=== PATIENT | male | born 1980 | race African-American/Black ===

== ENCOUNTER 2019-01-04 21:06 | Emergency (ER) | payer BC ==
[2019-01-04 22:25] VITALS: BP 127/69
[2019-01-04] MEDS ORDERED: LIDOCAINE 1% INJ-PF (10 MG/ML) 30 ML SDV INJ ONE (23:06)
[2019-01-04] MEDS ORDERED: PROMETHAZINE HCL 25 MG TABLET PO ONE (23:06)
[2019-01-04] MEDS ORDERED: OXYCODONE-ACETAMINOPHEN 5-325 MG TABLET PO ONE (23:06)
--- NOTE | 2019-01-04 23:08 | ER Document Report ---
ED Medical Screen (RME) - General Chief Complaint: Groin Pain Stated Complaint: GROIN AREA BUMP Time Seen by Provider: 01/04/19 23:06 Notes: 38-year-old male with chief complaint of a swollen painful area in the right groin, started 2 days ago and worsened. Pain radiates up towards the hip on the right side. Denies fever/chills, nausea/vomiting. Denies history of the same or past medical history. TRAVEL OUTSIDE OF THE [place] IN LAST 30 DAYS: No - Related Data Allergies/Adverse Reactions: No Known Allergies Allergy (Verified 01/04/19 21:08) Past Medical History Past Surgical History: Reports: Hx Appendectomy - Immunizations Hx Diphtheria, Pertussis, Tetanus Vaccination: Yes Physical Exam - Vital signs Vitals: Temp Pulse Resp BP Pulse Ox 97.8 F 62 18 127/69 H 98 01/04/19 22:23 01/04/19 22:23 01/04/19 22:23 01/04/19 22:23 01/04/19 22:23 - Genitourinary Inspection: Other - Indurated, possibly fluctuant area just superior to the genitals in the right groin, there is mild adjacent inguinal lymphadenopathy. Course - Re-evaluation Re-evalutation: I have greeted and performed a rapid initial assessment of this patient. A comprehensive ED assessment and evaluation of the patient, analysis of test results and completion of the medical decision making process will be conducted by additional ED providers. - Vital Signs Vital signs: Temp Pulse Resp BP Pulse Ox 97.8 F 62 18 127/69 H 98 01/04/19 22:23 01/04/19 22:23 01/04/19 22:23 01/04/19 22:23 01/04/19 22:23
[2019-01-05] MEDS ORDERED: LIDOCAINE 1% INJ-PF (10 MG/ML) 30 ML SDV ONE (05:00)
[2019-01-05] MEDS ORDERED: SULFAMETHOXAZOLE/TRIMETHOPRIM 800-160 MG TABLET PO ONE (05:23)
[2019-01-05] MEDS ORDERED: HYDROCODONE/ACETAMINOPHEN 5-325 MG (6 TAB/ER DISP) PO PRN (05:23)
--- NOTE | 2019-01-05 05:25 | ER Document Report ---
ED Skin Rash/Insect Bite/Abscs - General Chief Complaint: Groin Pain Stated Complaint: GROIN AREA BUMP Time Seen by Provider: 01/04/19 23:06 Notes: Patient is a 38-year-old male with chief complaint of a swollen painful area in the right groin, started 2 days ago and worsened. Pain radiates up towards the hip on the right side. Denies fever/chills, nausea/vomiting. Denies history of the same or past medical history. TRAVEL OUTSIDE OF THE [place] IN LAST 30 DAYS: No - Related Data Allergies/Adverse Reactions: No Known Allergies Allergy (Verified 01/04/19 21:08) Past Medical History - General Information source: Patient - Social History Smoking Status: Never Smoker Chew tobacco use (# tins/day): No Frequency of alcohol use: None Drug Abuse: None Lives with: Family Family History: Reviewed & Not Pertinent Patient has suicidal ideation: No Patient has homicidal ideation: No - Medical History Medical History: Negative Renal/ Medical History: Denies: Hx Peritoneal Dialysis Past Surgical History: Reports: Hx Appendectomy - Immunizations Hx Diphtheria, Pertussis, Tetanus Vaccination: Yes Review of Systems - Review of Systems Constitutional: No symptoms reported EENT: No symptoms reported Cardiovascular: No symptoms reported Respiratory: No symptoms reported Gastrointestinal: No symptoms reported Genitourinary: No symptoms reported Male Genitourinary: See HPI Musculoskeletal: No symptoms reported Skin: See HPI Hematologic/Lymphatic: No symptoms reported Neurological/Psychological: No symptoms reported Physical Exam - Vital signs Vitals: Temp Pulse Resp BP Pulse Ox 97.8 F 62 18 127/69 H 98 01/04/19 22:23 01/04/19 22:23 01/04/19 22:23 01/04/19 22:23 01/04/19 22:23 - Notes Notes: GENERAL: Alert, interacts well. No acute distress. HEAD: Normocephalic, atraumatic. EYES: Pupils equal, round, and reactive to light. Extraocular movements intact. ENT: Oral mucosa moist, tongue midline. Oropharynx unremarkable. Airway patent. NECK: Full range of motion. Supple. Trachea midline. LUNGS: Clear to auscultation bilaterally, no wheezes, rales, or rhonchi. No respiratory distress. HEART: Regular rate and rhythm. No murmur ABDOMEN: Soft, non-tender. Non-distended. Bowel sounds present in all 4 quadrants. GENITOURINARY: Just superior to the genitals on the right side there is an indurated and possibly fluctuant area. No obvious surrounding cellulitis. Minimal nearby lymphadenopathy noted. Normal penis, testicle, scrotum exam. Exam performed with Celestina PATEL at bedside. EXTREMITIES: Moves all 4 extremities spontaneously. No edema, normal radial and dorsalis pedis pulses bilaterally. No cyanosis. BACK: no cervical, thoracic, lumbar midline tenderness. No saddle anesthesia, normal distal neurovascular exam. NEUROLOGICAL: Alert and oriented x3. Normal speech. . PSYCH: Normal affect, normal mood. SKIN: Warm, dry, normal turgor. No rashes or lesions noted. Course - Re-evaluation Re-evalutation: Areas consistent with an abscess just above the genitals. No other concerning N normalities noted. On bedside ultrasound this does appear to be a fluctuant abscess requiring drainage. Discussed with Dr. Lynn. Incision and drainage was performed of the abscess with success and no noted complications. Patient tolerated well. Discussed care, follow-up, return precautions with patient. He states understanding and agreement. - Vital Signs Vital signs: Temp Pulse Resp BP Pulse Ox 97.8 F 62 18 127/69 H 98 01/04/19 22:23 01/04/19 22:23 01/04/19 22:23 01/04/19 22:23 01/04/19 22:23 Procedures - Incision and Drainage Right inguinal region Type: Single Anesthetic type: 1% Lidocaine mL's of anesthetic: 8 Blade size: 11 I&D procedure: Shurclens applied, Sterile dressing applied Incision Method: Incision made by scalpel Amount/type of drainage: Moderate purulent and bloody drainage Discharge - Discharge Clinical Impression: Inguinal abscess Condition: Stable Disposition: HOME, SELF-CARE Additional Instructions: The abscess has been drained. Keep clean, clean with soap and water, you can shower but avoid soaking. Keep absorbing dressing over the area. Take antibiotic as prescribed, take pain medication if needed. Follow-up with primary care for additional evaluation and management. Return if you worsen including developing swelling, redness, fever, or any other concerning or worsening symptoms Prescriptions: Hydrocodone/Acetaminophen [Foster 5-325 mg Tablet] 1 - 2 tab PO ASDIR #15 tablet Sulfamethoxazole/Trimethoprim [Bactrim Ds Tablet] 1 each PO BID #14 tablet Forms: Return to Work
== END 2019-01-05 05:45 | disposition home or self-care (01) ==
LOC: ER 21:06
PROC: 0H9HXZZ Drainage of Right Upper Leg Skin, External Approach (ICD-10-PCS; principal; 2019-01-04)
DX: L02.214 Cutaneous abscess of groin (principal); R10.30 Lower abdominal pain, unspecified; M25.551 Pain in right hip
CPT/HCPCS: 99283